=== PATIENT | female | born 1965 | race Caucasian/White ===

== ENCOUNTER 2019-03-31 17:39 | Observation (INO) | payer BC ==
--- NOTE | 2019-03-31 18:06 | ED ---
Neurological HPI - HPI Summary HPI Summary: This pt is a 53 y/o female presenting to [facility] c/o numbness in bilateral legs, bilateral face numbness, right arm numnness, decreased rectal tone. Pt reports on Wednesday03/27/19 she noticed subtle symptoms of gas. The next day she started noticing her legs were aching and burning. She also experienced boring pain in her upper iliac crest and umbilicus. Additionally she noted her tongue felt weird numbness as well as her bilateral face. In the evening that day she had right hand numbness and a "weird" sensation. Denies any weakness. This morning she noticed she had decreased rectal tone and has urgency to defecate with a lot of gas. Patient has been on PO steroids since Wednesday (03/27/19) prescribed by Dr. Bragg. She notes she has probably had 60 mg of steroids every day since 03/27/19. Pt notes she has had these spinal cord symptoms in the past after a cold or viral syndrome where it has resolved after PO steroids. This time pt denies any associated cold or viral illness symptoms. Pt reports in 2013 she had a viral syndrome with a fever and then had spinal cord symptoms with a fever. She was given PO steroids and Acyclovir and her symptoms resolved. In 2014 pt notes she was sick again with a cough and cold and had spinal cord symptoms 2 days later. She was also placed on PO steroids and Acyclovir and her symptoms resolved. In 2014 pt had a viral illness and also spinal cord symptoms. In the last year patient states she kept getting sick, in February 2018 and July 2018 she had spinal cord symptoms. Today pt notes this is the first time she has been getting spinal cord symptoms without getting sick with a viral syndrome and it has been more intense and scary. Pt saw Dr. Bragg in his office and reviewed previous scans and were debating a spinal tap. Pt emailed with Harjit, who does peripheral neuro, and was told pt should see someone who is objective to treat her and advised her she needed an LP sooner than later. PMHx: breast CA on remission s/p bilateral mastectomy, hemangioblastoma posterior fossa s/p resection, reconstruction of breasts with implants. Pt reports occasional alcohol use. Medications reviewed. Allergies noted. - History of Current Complaint Stated Complaint: NEUROLOGY PROBLEM PER PT Time Seen by Provider: 03/31/19 17:41 Hx Obtained From: Patient Onset/Duration: Started days ago, Still Present Timing: Constant Current Severity: Moderate Neurological Deficit Location: Facial, RUE, RLE, LLE Pain Intensity: 0 Pain Scale Used: 0-10 Numeric Character: Numbness/Tingling - numbness Aggravating: Nothing Alleviating: Nothing Associated Signs and Symptoms: Positive: Numbness, Incontinent Bladder/Bowel - urgency to defecate, decreased rectal tone. Negative: Visual Changes, Weakness , Impaired Speech, Fever - Allergy/Home Medications Allergies/Adverse Reactions: Allergies Allergy/AdvReac Type Severity Reaction Status Date / Time ceftriaxone Allergy Rash Verified 03/31/19 17:49 doxycycline Allergy Rash Verified 03/31/19 17:49 hydromorphone [From Dilaudid] Allergy Rash Verified 03/31/19 17:49 iodine Allergy Rash Verified 03/31/19 17:49 oxycodone Allergy Rash Verified 03/31/19 17:49 Home Medications: Home Medications predniSONE TAB* [Deltasone 20 MG TAB*] 40 mg PO DAILY 03/31/19 [History Confirmed 03/31/19] PMH/Surg Hx/FS Hx/Imm Hx Endocrine/Hematology History: Denies: Hx Diabetes Cardiovascular History: Denies: Hx Hypertension, Hx Pacemaker/ICD History: Denies: Hx Renal Disease Musculoskeletal History: Denies: Hx Rheumatoid Arthritis, Hx Osteoporosis Sensory History: Reports: Hx Hearing Aid Neurological History: Denies: Other Neuro Impairments/Disorders Psychiatric History: Denies: Hx Panic Disorder - Cancer History Cancer Type, Location and Year: HEMANGIOMA-BLASTOMA AND BREAST CANCER - Surgical History Surgical History: Yes Surgery Procedure, Year, and Place: 1984-RESECTION OF HEMANGIO-BLASTOMA POSTERIOR FOSSA,. BILATERAL MASTECTOMY, 04/27/16 BREAST IMPLANTS Infectious Disease History: No Infectious Disease History: Denies: Hx Clostridium Difficile, Hx Hepatitis, Hx Human Immunodeficiency Virus (HIV), Hx of Known/Suspected MRSA, Hx Shingles, Hx Tuberculosis, Hx Known/ Suspected VRE, Hx Known/Suspected VRSA, History Other Infectious Disease, Traveled Outside the [place] in Last 30 Days - Family History Known Family History: Positive: Non-Contributory - Social History Alcohol Use: Occasionally Substance Use Type: Reports: None Smoking Status (MU): Never Smoked Tobacco Have You Smoked in the Last Year: No Review of Systems Negative: Fever Gastrointestinal: Other - POSITIVE: urgency to defecate Neurological: Other - POSITIVE: decreased rectal tone Positive: Numbness. Negative: Weakness All Other Systems Reviewed And Are Negative: Yes Physical Exam - Summary Physical Exam Summary: Constitutional: Well-developed, Well-nourished, Alert. (-) Distressed Skin: Warm, Dry HENT: Normocephalic; Atraumatic Eyes: Conjunctiva normal Neck: Musculoskeletal ROM normal neck. (-) JVD, (-) Stridor, (-) Tracheal deviation Cardio: Rhythm regular, rate normal, Heart sounds normal; Intact distal pulses; The pedal pulses are 2+ and symmetric. Radial pulses are 2+ and symmetric. (-) Murmur Pulmonary/Chest wall: Effort normal. (-) Respiratory distress, (-) Wheezes, (-) Rales Abd: Soft, (-) tenderness, (-) Distension, (-) Guarding, (-) Rebound Musculoskeletal: (-) Edema Lymph: (-) Cervical adenopathy Neuro: Alert, Oriented x3 Psych: Mood and affect Normal Triage Information Reviewed: Yes Vital Signs On Initial Exam: Initial Vitals Temp Pulse Resp BP Pulse Ox 97.3 F 78 19 146/86 98 03/31/19 17:43 03/31/19 17:43 03/31/19 17:43 03/31/19 17:43 03/31/19 17:43 Vital Signs Reviewed: Yes Procedures - Sedation Patient Received Moderate/Deep Sedation with Procedure: No Diagnostics - Vital Signs Vital Signs Temp Pulse Resp BP Pulse Ox 03/31/19 17:43 97.3 F 78 19 146/86 98 - Laboratory Result Diagrams: 03/31/19 18:13 03/31/19 18:13 Lab Statement: Any lab studies that have been ordered have been reviewed, and results considered in the medical decision making process. Course/Dx - Course Course Of Treatment: Patient is here with multiple neurologic symptoms including a sensation of tight belt around her waist, burning sensation in bilateral lower extremities, numbness in her right upper extremity and bilateral face area patient's had similar symptoms in the past following viruses but has never had symptoms like this without a viral prodrome. Patient' s also never had bowel dysfunction. Patient will receive an MRI with and without contrast of her brain, cervical spine, thoracic spine, lumbar spine today as an inpatient. Dr. Bragg wants to give 1 g of Solu-Medrol after the MRI. An LP will be arranged following MRI likely in the morning. Patient is admitted to the hospital. - Diagnoses Provider Diagnoses: Bilateral leg numbness, Right arm numbness, Bowel dysfunction - Physician Notifications Discussed Care Of Patient With: Ezio Cochran - hospitalist Time Discussed With Above Provider: 18:12 Instructed by Provider To: Admit As Inpatient Discharge ED - Sign-Out/Discharge Documenting (check all that apply): Patient Departure - Admit to [facility] [place] - Discharge Plan Condition: Stable Disposition: ADMITTED TO [facility] - Billing Disposition and Condition Condition: STABLE Disposition: Admitted to [facility] - Attestation Statements Document Initiated by Erwin: Yes Documenting Scribe: Eileen Acosta Provider For Whom Erwin is Documenting (Include Credential): Jacob Rust MD Scribe Attestation: Eileen Egan, scribed for Jacob Rust MD on 04/01/19 at 0855. Scribe Documentation Reviewed: Yes Provider Attestation: The documentation as recorded by the Eileen gutiérrez accurately reflects the service I personally performed and the decisions made by , Jacob Rust MD Status of Scribe Document: Viewed
[2019-03-31 18:19] LABS: ABS Lymphocytes 0.7 10^3/ul (1.0-4.8); ABS Monocytes 0.3 10^3/ul (0-0.8); ABS Neutrophils 6.5 10^3/ul (1.5-7.7); Hematocrit 41 % (35-47); Hemoglobin 14.1 g/dL (12.0-16.0); Lymphocyte % 8.9 %; Mean Corpuscular HGB Conc 34 g/dL (31-36); Mean Corpuscular Hemoglobin 31 pg (27-31); Mean Corpuscular Volume 91 fL (80-97); Platelet Count 195 10^3/uL (150-450); Red Blood Count 4.53 10^6 /uL (3.70-4.87); Red Cell Distribution Width 13 % (10-15); White Blood Count 7.5 10^3/uL (3.5-10.8)
[2019-03-31 18:36] LABS: Albumin 4.4 g/dL (3.2-5.2); Albumin/Globulin Ratio 1.4 (1-3); Calcium 9.5 mg/dL (8.6-10.3); EGFR African American 66.1 (>60); EGFR Non-African American 54.6 (>60); Globulin 3.2 g/dL (2-4); Potassium 4.3 mmol/L (3.5-5.0); Total Bilirubin 0.4 mg/dL (0.2-1.0); Total Protein 7.6 g/dL (6.4-8.9)
[2019-03-31] MEDS ORDERED: Acetaminophen TAB* 325 MG PO PRN (19:10)
[2019-03-31] MEDS ORDERED: Gadoteridol* (CONTRAST) 279.3 MG/ML 10 ML IV ONE (19:35)
[2019-03-31] MEDS ORDERED: methylPREDNISolone SOD SUCC* 1,000 MG in NS 0.9% 250 ML* 250 ML IVPB ONE (22:00)
--- NOTE | 2019-03-31 22:21 | HP ---
CC: Dr. Gertrude Ward; Dr. Marc Bragg, Dr. Lopez, [place]; Dr. Dunia Braun* HISTORY AND PHYSICAL: DATE OF ADMISSION: 03/31/19 PRIMARY CARE PROVIDER: Dr. Gertrude Ward. NEUROLOGIST: Dr. Marc Bragg, Dr. Lopez, [place]. ATTENDING PHYSICIAN: Dunia Braun MD* (dictated by DAISHA Lizarraga). CHIEF COMPLAINT: Paresthesias. HISTORY OF PRESENT ILLNESS: Ms. Johns is a 53-year-old female with a past medical history of 5 episodes of viral prodrome followed by myelopathy and paresthesias that resolved with oral steroid, history of bilateral breast cancer , status post bilateral mastectomy, hemangioblastoma, resected in 1984, who presented to the ER today with complaints of paresthesias from the iliac crest distally. She notes that this likely began on Wednesday and became worse Wednesday. She noted by the end of the day, Wednesday she was in excruciating pain. She describes the pain as an "aching boring pain" that is constant. It does not appear to be positional. She notes that it is like wearing a "tight belt." She describes associated tingling in the extremities right greater than left. She notes right hand and face tingling with a sensation that the tongue is thickened and heavy, but notes that this has improved. She denies weakness. She notes that she has had increased flatus and bowel urgency since this all began and believed her rectal tone has decreased after having a sepsis. She also describes a burning sensation in the perineal and buttock area. She has no visual deficits. She denies dysphagia, dysarthria. She denies weakness. She started prednisone 20 mg Wednesday and took 60 mg on Wednesday, and Wednesday and has experienced no relief. She does have a history of viral prodrome , followed by this belt like pain and paresthesias that typically resolves after 2 days of steroids, her typical regimen is 60 x2 days, 40 x2 days, 20 x2 days and then discontinue. She notes that steroids have not decreased any of her symptoms at this time leading to her seeking medical attention in the ER. PAST MEDICAL HISTORY: 1. Breast cancer, status post bilateral mastectomy, previously was on tamoxifen which was discontinued in January 2019 due to adverse effects. 2. History of hemangioblastoma, resected in 1984. 3. History of adhesive capsulitis, right shoulder status post reconstruction surgery. PAST SURGICAL HISTORY: Bilateral mastectomy with negative lymph nodes December 2015, reconstructive surgery x2, January 2016, April 2016. HOME MEDICATIONS: Ibuprofen 200 mg p.o. q. 6 hours p.r.n. pain. DRUG ALLERGIES: CEFTRIAXONE, DOXYCYCLINE, HYDROMORPHONE, MORPHINE, OXYCODONE, IODINE. FAMILY HISTORY: Mother from cardiomyopathy. Father is 92, has a history of atrial fibrillation and skin cancer. She has a sister with ITP and congenital hearing loss. She has 2 siblings with hypothyroidism. Paternal grandmother had a fatal NH. Maternal grandmother with metastatic cancer. Maternal grandfather melena. Positive family history of breast cancer. No family history of CVA, diabetes mellitus, neurological disorder, autoimmune disorder. SOCIAL HISTORY: The patient does not use tobacco and never has. She drinks 1 to 3 drinks of wine per week. She does not use ay illicit drugs. 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 She is single. She has no children but notes she has had miscarriages. In the event that she is unable to make her own medical decision, she has appointed Arely Wayne, or her brother, Bravo Johns, to be her surrogate decision makers. REVIEW OF SYSTEMS: A 14-point review of systems has been performed and all the pertinent positives and negatives are in the HPI. All other systems are negative. PHYSICAL EXAMINATION GENERAL: Ms. Johns is a well-developed, well-nourished, average weight middle - aged white female, who is sitting up in bed. She appears to be in no acute distress. She is pleasant and cooperative. She speaks eloquently without dysarthria or ataxia. HEENT: Pupils equally round and reactive to light. Extraocular movements are intact. Visual spicer are grossly intact. Sclerae nonicteric. Hearing is grossly intact, although it is noted that the patient wears hearing aids. Oral mucous membranes are moist and there are no lesions. The pharynx is clear. The tongue is at midline. The palate elevates symmetrically. PULMONARY: Symmetrical chest expansion without use of accessory muscles, clear to auscultation bilaterally without rhonchi, wheezes or rales. CARDIOVASCULAR: Regular rate and rhythm with S1, S2 present no murmurs, rubs, clicks, or gallops. There is no JVD or peripheral edema. Radial and pedal pulses are palpable. ABDOMEN: Bowel sounds in all quadrants. Soft, nontender to palpation. MUSCULOSKELETAL: Strength is 5/5 bilaterally in upper and lower extremities with equal stove fitter strength. The patient has no increased pain with palpation or hip and knee flexion or extension. NEURO: The patient is awake. She is alert and oriented x3. Cranial nerves II through XII are grossly intact. Submarine Element Coordinator strength is equal bilaterally. Muscle strength 5/5 bilaterally in upper and lower extremities. Muscle strength is equal. Sensation is intact throughout bilateral distal lower extremities. DIAGNOSTIC STUDIES/LAB DATA: In the ER, the patient received a full workup. A CBC and BMP were relatively unremarkable with a mild increase in creatinine. MRI of the brain, cervical, thoracic and lumbar spine with and without contrast are pending at this time. ASSESSMENT AND PLAN: Ms. Johns is a 53-year-old female with a past medical history of viral prodrome followed by myelopathy and paresthesias, bilateral breast cancer, status post bilateral mastectomy, hemangioblastoma resected in 1984, who presented to the ER today with complaints of paresthesias that have not improved with oral steroids as they have in the past. The patient will be admitted to observation for: 1. Paresthesias. The patient presents with band like tightness around the lower abdomen with associated paresthesias from the iliac crest distally, right greater than left. She notes she has had a history of this approximately 5 times in the past, each time she had a viral prodrome prior and her symptoms were resolved within days of starting steroids. This time she has not had a viral prodrome and her symptoms persist despite steroids. Neurology has been consulted and has made recommendations. MRI of the brain, CT and L spine with and without contrast are pending at this time. After her imaging, she will receive 1 g of Solu-Medrol, second dose will be scheduled for tomorrow. She will have a lumbar puncture in the morning with anesthesia. LP test include flow cytometry, HSV 1 and 2, VZV, oligoclonal bands, paraneoplastic panel on CSF and serum, Lyme titers on CSF and serum. Her current MRIs and her MRIs from 2013 will be forwarded to [place] to her neurologist, Dr. Lopez. Neurology will continue to follow. 2. History of breast cancer. The patient has a history of bilateral breast cancer, status post bilateral mastectomy, with reconstruction who was recently on tamoxifen. She has discontinued this medication due to adverse effects. 3. DVT prophylaxis. According to DVT Risk Assessment, the patient scores 1 placing her at low risk. Chemo prophylaxis will be avoided at this time as the patient is preparing for lumbar puncture in the morning. Encourage ambulation. 4. Code status. Full code. TIME SPENT: Approximately 60 minutes was spent on this admission, greater than half of that time was spent [id number] with the patient obtaining history, performing physical, and reviewing the plan of care. The case has been reviewed with my attending, Dr. Braun, who is in agreement with the plan of care. DAISHA POON [id number]/[facility]PS #: [id number] MTDD
[2019-04-01] MEDS ORDERED: NS 0.9% 500 ML* 500 ML IV ONE (08:00)
[2019-04-01] MEDS ORDERED: Midazolam* 1 MG/ML 2 ML VIAL (2 MG) ONE (09:08)
[2019-04-01] MEDS ORDERED: fentaNYL* 50 MCG/ML 2 ML VIAL (100 MCG VIAL) ONE (09:08)
[2019-04-01 11:02] LABS: Body Fluid Source Cerebral Spinal
[2019-04-01 11:17] VITALS: BP 111/63
[2019-04-01 11:17] LABS: CSF Glucose 99 mg/dL (40-70)
--- NOTE | 2019-04-01 11:34 | CONS ---
CONSULTATION REPORT: ADDENDUM: In addition, the plan is for her to have an EMG/nerve conduction study and she is going to have that up at [place]. [id number]/[facility] #: [id number]
--- NOTE | 2019-04-01 12:13 | PN ---
Subjective - Subjective Reason for Note: Discharge Note History: DISCHARGE SUMMARY Rosaura Crocker provided me with a detailed history and I also reviewed her presentation in [facility] Rider's admitting history and physicals. I reviewed the electronic medical records. She presented with a 6th episode of acute neurological symptoms. The first 5 followed acute viral syndromes. On this case it started in the absence of viral infection or prodrome. She had some initial bowel symptoms - gas. She also noted reduced rectal tone. She has developed dysesthetic pain in her legs and also extending in her iliac region to her umbilicus - the right side slightly higher then her left side. At first her tongue was heavy and she had some abnormal sensation develop in her right face and hand. The pain in her legs became unbearable and so she was admitted for IV steroids as oral steroids had not significantly helped. She has had a positive response to her first steroid infusion. She no longer has sensations in her face, tongue hands, abdomen, buttocks or iliac regions. Her legs have improved further markedly since this morning. She feels well enough to go home after another infusion. She tolerated a lumbar puncture well and now has no headache or neck stiffness Active Problems: Active Problems Decreased rectal sphincter tone (Acute) K62.89 Status post bilateral mastectomy (Acute) Z90.13 Dysesthesia of multiple sites (Chronic) R20.8 History of breast cancer (Chronic) Z85.3 Current Medications: Current Medications Acetaminophen (Tylenol Tab*) 650 mg PO Q4H PRN PRN Reason: mild to moderate pain Sodium Chloride (Ns 0.9% 500 Ml*) 500 mls @ 100 mls/hr IV ONCE ONE Stop: 04/01/19 12:59 Last Admin: 04/01/19 08:04 Dose: 100 mls/hr - Review of Systems Constitutional Symptoms: Yes: Night Sweats - has hot flashes, No: Fever Dermatology: Rash: No Eyes: Negative: Change in Vision, Double Vision Pulmonary: Negative: Cough, Sputum, Respiratory Distress, Shortness of Breath Cardiology: Negative: Chest Pain, Palpitations Gastroenterology: Positive: Change in Bowel Habits - She continues to pass gas and not have her usual am bowel movement Negative: Abdominal Pain, Nausea, Vomiting, Anorexia Genital - Urinary: Positive: Other - Her urinary volume less than usual - Dr. Puente suggested a post-void scan Neurology: Negative: Headache, Change in Vision, Diplopia, Dizziness, Change in Speech, Change in Walking Psychiatry: Positive: Anxiety Home Medications: Home Medications Medication Instructions Recorded Confirmed Type Ibuprofen TAB* [Advil TAB*] 200 mg PO Q6H PRN 05/01/15 03/31/19 History predniSONE TAB* [Deltasone 20 MG 40 mg PO DAILY 03/31/19 03/31/19 History TAB*] Allergies: Allergies Allergy/AdvReac Type Severity Reaction Status Date / Time ceftriaxone Allergy Rash Verified 03/31/19 17:49 doxycycline Allergy Rash Verified 03/31/19 17:49 hydromorphone [From Dilaudid] Allergy Rash Verified 03/31/19 17:49 iodine Allergy Rash Verified 03/31/19 17:49 oxycodone Allergy Rash Verified 03/31/19 17:49 Objective - Vital Signs Vital Signs: Vital Signs 03/31/19 03/31/19 03/31/19 17:43 18:30 18:31 Temperature 97.3 F Pulse Rate 78 64 64 Respiratory 19 7 Rate Blood Pressure 146/86 127/77 (mmHg) O2 Sat by Pulse 98 95 95 Oximetry 03/31/19 03/31/19 03/31/19 19:00 19:45 22:00 Temperature 0 F 98.0 F Pulse Rate 67 0 62 Respiratory 25 0 18 Rate Blood Pressure 140/69 0/0 131/73 (mmHg) O2 Sat by Pulse 96 0 100 Oximetry 04/01/19 04/01/19 04/01/19 00:10 03:30 07:15 Temperature 97.3 F 97.4 F 98.2 F Pulse Rate 76 52 66 Respiratory 17 17 13 Rate Blood Pressure 116/63 100/55 115/66 (mmHg) O2 Sat by Pulse 98 97 95 Oximetry 04/01/19 04/01/19 04/01/19 08:00 09:55 10:10 Temperature 97.4 F 97.8 F Pulse Rate 71 77 Respiratory 13 16 16 Rate Blood Pressure 133/73 116/69 (mmHg) O2 Sat by Pulse 98 99 Oximetry 04/01/19 11:15 Temperature 97.9 F Pulse Rate 63 Respiratory 17 Rate Blood Pressure 111/63 (mmHg) O2 Sat by Pulse 97 Oximetry - Intake and Output Intake and Output: Intake & Output 03/29/19 03/30/19 03/31/19 04/01/19 11:59 11:59 11:59 11:59 Intake Total 250 Balance 250 Weight 188 lb Intake: IV Fluids 250 PB - METHYLPREDNISOLONE 250 Oral 0 Other: # Bowel Movements 0 ADLs: Meal Record Start: 03/31/19 20: 12 Freq: DAILY@0900,1400,1800 Status: Active Protocol: Created 03/31/19 20:12 System (Rec: 03/31/19 20:12 System [email or web address]) Document 04/01/19 09:00 [id number] (Rec: 04/01/19 09:09 [id number]) Intake and Output Start: 03/31/19 20: 12 Freq: DAILY@0600,1400,2200 Status: Active Protocol: Created 03/31/19 20:12 System (Rec: 03/31/19 20:12 System [email or web address]) Document 04/01/19 05:59 [id number] (Rec: 04/01/19 06:00 [id number]) - Physical Exam General Physical Exam Comment: She is warm, well perfused and conversational. She is her usual highly intelligent, insightful self. Eye Exam: bilateral: EOMI - normal - no internuclear ophthalmoplegia, Vision Field - Intact Skin: Normal: Rash -: No Tremor, No Goiter, No Thyroid Nodule Endocrine: No Central Obesity, No Hirsuitism, No Virilism, No Acromegaly, No Vitiligo, No Flushing, No Acanthosis nigricans, No Violaceious striae, No Houston Syndrome, No Buccal pigmenatation, No Way Crease Pigmentation Lungs and Chest: Yes: Chest Expansion Full, Percussion Note Resonant, Vessicular Breath Sounds. No: Crackles, Wheezes Heart Rate and Rhythm: Regular JVP: Not Elevated Additional Cardiovascular: Yes: Normal Heart Sounds. No: Heart Murmur, Carotid Bruits, Pedal Edema Abdominal Exam: Yes: Bowel Sounds Present. No: Distention, Abdominal Mass, Hepatomegaly, Splenomegaly, Abdominal Tenderness - Extremities Cranial Nerves II-XII Intact: Yes Limbs: Normal Power, Normal Tone, Normal Coordination Reflexes: Bilateral: Plantar - downgoing bilaterally - Neuro Orientation: A/O x3 Psychiatric: Normal, Anxious Speech: Normal Results - Results Lab Results: Laboratory Results - last 24 hr 03/31/19 03/31/19 04/01/19 18:13 18:13 10:03 WBC 7.5 RBC 4.53 Hgb 14.1 Hct 41 MCV 91 MCH 31 MCHC 34 RDW 13 Plt Count 195 MPV 10.0 Neut % (Auto) 87.1 Lymph % (Auto) 8.9 Kittson % (Auto) 3.7 Eos % (Auto) 0.0 Baso % (Auto) 0.3 Absolute Neuts (auto) 6.5 Absolute Lymphs (auto) 0.7 L Absolute Monos (auto) 0.3 Absolute Eos (auto) 0.0 Absolute Basos (auto) 0.0 Absolute Nucleated RBC 0.0 Nucleated RBC % 0.0 Sodium 140 Potassium 4.3 Chloride 108 Carbon Dioxide 28 Anion Gap 4 BUN 22 Creatinine 1.05 H Est GFR ( Amer) 66.1 Est GFR (Non-Af Amer) 54.6 BUN/Creatinine Ratio 21.0 H Glucose 125 H Calcium 9.5 Total Bilirubin 0.40 AST 25 ALT 31 Alkaline Phosphatase 58 Total Protein 7.6 Albumin 4.4 Globulin 3.2 Albumin/Globulin Ratio 1.4 Fluid Source Fluid Volume Fluid Color Fluid Appearance Fluid WBC Fluid RBC CSF Cell Count Tube # CSF Glucose 99 H 04/01/19 10:03 WBC RBC Hgb Hct MCV MCH MCHC RDW Plt Count MPV Neut % (Auto) Lymph % (Auto) Kittson % (Auto) Eos % (Auto) Baso % (Auto) Absolute Neuts (auto) Absolute Lymphs (auto) Absolute Monos (auto) Absolute Eos (auto) Absolute Basos (auto) Absolute Nucleated RBC Nucleated RBC % Sodium Potassium Chloride Carbon Dioxide Anion Gap BUN Creatinine Est GFR ( Amer) Est GFR (Non-Af Amer) BUN/Creatinine Ratio Glucose Calcium Total Bilirubin AST ALT Alkaline Phosphatase Total Protein Albumin Globulin Albumin/Globulin Ratio Fluid Source Cerebral spinal Fluid Volume 8 Fluid Color Colorless Fluid Appearance Clear Fluid WBC 0 Fluid RBC 0 CSF Cell Count Tube # 4 CSF Glucose Radiology Results: Patient Name: ROSAURA CROCKER Medical Record#: [id number] Ordering Physician: Jacob Rust MD Acct.#: [id number] : 1965 Age: 53 Sex: F Location: [address] [place] [address] Exam Date: 03/31/191741 ADM Status: ADM Panchito Order Information: MRI BRAIN W/WO Accession Number: [id number] CPT: 00455 PROCEDURE INFORMATION: Exam: MR Head Without and With Contrast Exam date and time: 03/31/2019 7:42 PM Age: 53 years old Clinical indication: Numbness / parasthesia; Prior surgery; Surgery date: 6+ months; Patient HX: C/O numbness from umbilicus down, decreased rectal tone, and sensory issues w/ right arm since . H/o breast CA; H/o resection of hemangioblastoma of posterior fossa in 1984; Additional info: Demylinating disease TECHNIQUE: Imaging protocol: MR of the head without and with intravenous contrast. Contrast material: PROHANCE; Contrast volume: 16 ml; Contrast route: IV; COMPARISON: BRAIN WWO MRI BRAIN W/WO 04/09/2014 10:21 AM FINDINGS: Ventricular and subarachnoid spaces are unremarkable. Major vascular flow voids at the skull base are preserved. No extra-axial fluid collection. Small left cerebellar resection cavity. No midline shift or intracranial mass effect. No cerebral edema. No diffusion restriction. No pathologic intracranial enhancement. Minimal nonspecific white matter gliosis, probable chronic microvascular ischemia. Visualized paranasal sinuses and mastoid air cells are clear. IMPRESSION: 1. No acute intracranial abnormality. 2. Left cerebellar resection cavity without pathologic enhancement. Dictated and Authenticated by: Dmitriy Juarez MD 03/31/2019 9:58 PM Eastern Time ([place] and [place]) To contact [facility] with a general question: Operations Center - [phone] For direct physician to physician contact: Physician Hotline - [phone] [facility] ([facility] Facility ID #[id number]) <Electronically signed by Dmitriy Juarez MD in OV> 03/31/192157 Dictated By: Dmitriy Juarez MD Dictated Date/Time: 03/31/191941 Transcribed Date/Time: 03/31/191941 Copy to: Patient Name: ROSAURA CROCKER Medical Record#: [id number] Ordering Physician: Jacob Rust MD Acct.#: [id number] : 1965 Age: 53 Sex: F Location: [address] [place] [address] Exam Date: 03/31/191741 ADM Status: ADM Panchito Order Information: MRI CERVICAL SPINE W/WO Accession Number: [id number] CPT: 20622 PROCEDURE INFORMATION: Exam: MR Cervical Spine Without and With Contrast Exam date and time: 03/31/2019 7:59 PM Age: 53 years old Clinical indication: Patient HX: C/O numbness from umbilicus down, decreased rectal tone, and sensory issues w/ right arm since tues. H/o breast CA; H/o resection of hemangioblastoma of posterior fossa in 1984; Additional info: Demylinating disease TECHNIQUE: Imaging protocol: Multiplanar magnetic resonance images of the cervical spine without and with intravenous contrast. Contrast material: PROHANCE; Contrast volume: 16 ml; Contrast route: IV; COMPARISON: [facility] MRI CERVICAL SPINE W/WO 04/09/2014 10:39 AM FINDINGS: Nonspecific straightening of the cervical lordosis. Vertebral body height and AP alignment is preserved. No evidence of discitis/osteomyelitis. No abnormal cord signal or expansion. No epidural fluid collection. No pathologic intrathecal enhancement. Stable small focus of susceptibility centered at the posterior intradural extramedullary space of the superior cervical spine. C2-C3: No central or foraminal stenosis. C3-C4: No central or foraminal stenosis. C4-C5: No central or foraminal stenosis. C5-C6: Minimal disc osteophyte complex without central or foraminal stenosis. C6-C7: Mild disc osteophyte complex with minimal bilateral uncinate spurring. No significant central or foraminal stenosis. C7-T1: No central or foraminal stenosis. IMPRESSION: 1. No acute abnormality. 2. Central canal is widely patent throughout. Dictated and Authenticated by: Dmitriy Juarez MD 03/31/2019 10:03 PM Eastern Time ([place] and [place]) To contact [facility] with a general question: [facility] - [phone] For direct physician to physician contact: Physician Hotline - [phone] [facility] ([facility] Facility ID #[id number]) <Electronically signed by Dmitriy Juarez MD in OV> 03/31/192202 Dictated By: Dmitriy Juarez MD Patient Name: ROSAURA CROCKER Medical Record#: [id number] Ordering Physician: Jacob Rust MD Acct.#: [id number] : 1965 Age: 53 Sex: F Location: [address] [place] [address] Exam Date: 03/31/191741 ADM Status: ADM Panchito Order Information: MRI LUMBAR SPINE W/WO Accession Number: [id number] CPT: 18275 PROCEDURE INFORMATION: Exam: MR Lumbar Spine Without and With Contrast. Exam date and time: 03/31/2019 8:23 PM Age: 53 years old Clinical indication: Patient HX: C/O numbness from umbilicus down, decreased rectal tone, and sensory issues w/ right arm since tu. H/o breast CA; H/o resection of hemangioblastoma of posterior fossa in 1984; Additional info: Demylinating disease TECHNIQUE: Imaging protocol: Multiplanar magnetic resonance images of the lumbar spine without and with intravenous contrast. Contrast material: PROHANCE; Contrast volume: 16 ml; Contrast route: IV; COMPARISON: OT DLSP SP THORACOLUMBAR 2VWS 01/20/2014 5:23 PM FINDINGS: Vertebral body height and AP alignment is preserved. No evidence of discitis/osteomyelitis. Conus medullaris terminates at L1. No epidural fluid collection. No pathologic intrathecal enhancement. L1-L2: No central or foraminal stenosis. L2-L3: No central or foraminal stenosis. L3-L4: No central or foraminal stenosis. L4-L5: Minimal disc bulge with bilateral foraminal annular tears. No significant central or foraminal stenosis. L5-S1: No central or foraminal stenosis. IMPRESSION: 1. No acute abnormality. 2. Mild degenerative disc disease at L4-L5 without significant central canal compromise throughout. Dictated and Authenticated by: Dmitriy Juarez MD 03/31/2019 10:14 PM Eastern Time ([place] and [place]) To contact [facility] with a general question: Operations Center - [phone] For direct physician to physician contact: Physician Hotline - [phone] [facility] ([facility] Facility ID #[id number]) <Electronically signed by Dmitriy Juarez MD in OV> 03/31/192213 Dictated By: Dmitriy Juarez MD Dictated Date/Time: 03/31/192022 Transcribed Date/Time: 03/31/192022 Patient Name: ROSAURA CROCKER Medical Record#: [id number] Ordering Physician: Jacob Rust MD Acct.#: [id number] : 1965 Age: 53 Sex: F Location: [address] [place] [address] MEDICAL Exam Date: 03/31/191741 ADM Status: ADM Panchito Order Information: MRI THORACIC SPINE W/WO Accession Number: [id number] CPT: 73399 ADDENDUM Addendum created by Dmitriy Juarez MD on 03/31/2019 10:09:55 PM EST Comparison is made to prior MRI of the thoracic spine dated 04/09/2014. Signal abnormality and enhancement at T12 is new in the interval. In light of clinical history, consider metastatic deposit. Initial report created on 03/31/2019 10:08:04 PM EST PROCEDURE INFORMATION: Exam: MR Thoracic Spine Without and With Contrast Exam date and time: 03/31/2019 8:41 PM Age: 53 years old Clinical indication: Patient HX: C/O numbness from umbilicus down, decreased rectal tone, and sensory issues w/ right arm since . H/o breast CA; H/o resection of hemangioblastoma of posterior fossa in 1984; Additional info: Demylinating disease TECHNIQUE: Imaging protocol: Multiplanar magnetic resonance images of the thoracic spine without and with intravenous contrast. Contrast material: PROHANCE; Contrast volume: 16 ml; Contrast route: IV; COMPARISON: [facility] MRI THORACIC SPINE W/WO 04/09/2014 10:58 AM FINDINGS: Vertebral body height and AP alignment is preserved. No evidence of discitis/osteomyelitis. No abnormal cord signal or expansion. No epidural fluid collection. 2.3 cm focus of increased STIR signal and enhancement involving the T12 vertebral body. No central or foraminal stenosis throughout. IMPRESSION: 1. No abnormal cord signal. 2. No significant central or foraminal compromise. 3. 2.3 cm focus of increased STIR signal and enhancement involving the T12 vertebral body. Possible lipid poor hemangioma, followup is recommended to exclude more aggressive neoplastic process. Dictated and Authenticated by: Dmitriy Juarez MD 03/31/2019 10:09 Assessment - Problem List Assessment: Patient Problems Decreased rectal sphincter tone (Acute) Status post bilateral mastectomy (Acute) Dysesthesia of multiple sites (Chronic) History of breast cancer (Chronic) Plan: Dysesthesia of multiple sites (Chronic) The underlying etiology of this series of acute episodes of dysesthesia remains unknown. Her current investigations have not yet helped - imaging/labs. Her CSF investigations are pending. Her JEROD level and SPEP are negative. Since she is feeling improved, I think she can go home today after another steroid infusion. Decreased rectal sphincter tone (Acute) She also has reduced bladder sensation - I will check a post-void bladder scan Secondary diagnoses Status post bilateral mastectomy (Acute) History of breast cancer (Chronic) History of hemangioblastoma I discussed the above with Rosaura Crocker at length. She will follow up with outpatient infusions of steroid organized by Dr. Rishi Puente and will have neurological follow up at [facility] with Dr. Jonathan Lopez. Condition: Improved Disposition: Home
--- NOTE | 2019-04-01 12:57 | CONS ---
CC: Dr. Bragg; Dr. Lopez at [place] CONSULTATION REPORT: DATE OF CONSULT: PATIENT OF: Dr. Ward. HISTORY OF PRESENT ILLNESS: This is a 53-year-old right-handed woman who I am seeing for recurrent sensory symptoms primarily in her lower extremities. This began in March of 2014 following a flu-like illness with temperature to 103. She had a low abdominal sensory level without any weakness and had a feeling of numbness in V1 distribution in her face as well. She was evaluated with MRI scan of her neuraxis at that time, it showed some enhancement in her lower thoracic cord posteriorly and possibly in her trigeminal nerve on the right. Symptoms resolved with steroids, no LP was done at that point. Since then, she has had up until the present 4 episodes of similar symptoms often without facial numbness with all prior to most recent episode all following viral infections, all responding quickly to p.o. prednisone. Studies in the past included GREGORIO, Lyme titers, B12, and sed rate with negative findings. 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 She was on tamoxifen following that but has come off within the past several months due to side effects and she feels back to her baseline. She since Wednesday has had return of symptoms similar to the prior episodes without any preceding viral symptoms or fever. She describes it as a tight band in her lower abdomen with a sensation of pain in her lower abdomen down to her legs, with a burning feeling as well in her abdomen and some burning in her perineal and buttocks area. She has had no weakness or balance problems or visual symptoms. She has had some right hand tingling which is so minimal that she is not sure whether it is truly there or not, and she has had some facial numbness, worse on the right than the left. There are no visual symptoms, no headache, no Lhermitte sign. She has had some increased flatus and she thinks her rectal tone may be decreased. There has been no change in bladder. She told me just 20 mg of prednisone on Wednesday and 40 on Wednesday and then 60 after that, this is different than what is in the chart. In any event, her symptoms got worse on Wednesday which is atypical for her prior courses and she contacted Dr. Willingham in [place], who had several recommendations which will be discussed below. Dr. Bragg had seen her briefly on Wednesday. Of note in addition to the breast cancer, she has had hemangioblastoma resected in 1984 and history of a frozen shoulder, status post reconstructive surgery. MEDICATIONS AT HOME: Include other than the steroids the ibuprofen p.r.n. ALLERGIES: She is allergic to CEFTRIAXONE, DOXYCYCLINE, HYDROMORPHONE, MORPHINE , OXYCODONE, and IODINE. FAMILY HISTORY: Her mother of cardiomyopathy. Father is 92 and has a history of atrial fibrillation and skin cancer. There is a sister with ITP. SOCIAL HISTORY: She does not smoke or drink significant wine. She does not use drugs. 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 REVIEW OF SYSTEMS: Negative in all 14 spheres other than HPI. PHYSICAL EXAM: On exam, she is alert and oriented with normal speech and comprehension. Cranial nerves II through XII were intact including there was no facial numbness. Fundi were benign. She had full extraocular movements. Face is symmetric. Motor exam revealed normal tone, strength, coordination, gait. Negative Romberg. Sensation intact to light touch. There is no vibratory sensory level. She had minimally decreased vibration in her feet compared to her knees; it was present, but it was within broad limits of normal. Reflexes were 2+ in the arm, 3 in the legs with ankle jerks of 2 on the right and 3 on the left. She had 3 reflexes in knees, but she did have crossed adductors bilaterally. Chest: Clear. Cardiovascular: Regular rate and rhythm. Abdomen: Soft. DIAGNOSTIC STUDIES/LAB DATA: Labs include normal CBC, normal chemistries. She had an MRI scan of her complete neuraxis, which showed no enhancement and no spinal cord disease. Her thoracic spine had a T12 possible hemangioma- malignancy was thought less likely per radiologist. Spinal tap has been ordered with routine studies, Lyme titers, oligoclonal bands, paraneoplastic antibodies, herpes simplex virus, flow cytometry, neoplastic panel, VZV. 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 There is history of sensory nerve findings in the trigeminal nerve in the face. It is unclear whether there is also some nerve root involvement such as in the right hand with this most recent episode and possibly in the feet. She has also had possibly decreased rectal tone. She should have a postvoid bladder ultrasound and now her spinal tap is being done, I am going to add a VDRL to that and we will add B12, folate, antibodies, and rheumatoid factor and paraneoplastic testing.. She has had an extensive rheumatological workup recently and I will check the results of that before proceeding. I have sent the MRI scan films up to [place] and either Dr. Bragg or myself will contact [place] this coming week. The plan is for her to complete a 3-day course of IV Solu-Medrol over the next few days time and I think that this is reasonable to get the second dose this afternoon. Thank you for sharing her case. [id number]/[facility] #: [id number] BRODERICK
[2019-04-01] MEDS ORDERED: methylPREDNISolone SOD SUCC* 1,000 MG in NS 0.9% 250 ML* 250 ML IVPB ONE (13:00)
--- NOTE | 2019-04-02 14:37 | CONS ---
CONSULTATION NOTE: DATE OF CONSULT: ADDENDUM: I reviewed Rosaura's symptoms of numbness just in her feet, at this point feels a lot better. Her spinal fluid had a white count of 0 with a total protein of 30, 100% lymphs. I spoke to Dr. Prado and reviewed the films with him in detail and then with Dr. Johns as well. The T12 lesion, Dr. Prado thinks the lesion is suspicious for metastatic disease especially given her history of breast cancer and also since it was not present on the MRI scan study from 2013. We will be sending a copy of this addendum to Dr. Wolff and Dr. Lopez as well as Dr. Ward and will be contacting Dr. Wolff as well. Dr. Prado discussed the possibility of doing either a bone scan or PET scan for further staging either before or after possible biopsy of the vertebral lesion. Dr. Johns is aware of all of this and spoke with me to Dr. Prado over the phone. [id number]/[facility] #: [id number] [facility]
[2019-04-03 15:25] LABS: HSV 1 PCR, CSF Negative (Negative); HSV 2 PCR, CSF Negative (Negative)
== END 2019-04-01 15:45 | disposition home or self-care (01) ==
LOC: ED 17:39 → MED 19:10
PROVIDERS: ADMIT Internal Medicine; ATTEND Internal Medicine
DX: R20.0 Anesthesia of skin (principal); K62.89 Other specified diseases of anus and rectum; R20.2 Paresthesia of skin; R20.8 Other disturbances of skin sensation; Z85.3 Personal history of malignant neoplasm of breast; Z90.13 Acquired absence of bilateral breasts and nipples
CPT/HCPCS: 36415; 70553; 72156; 72157; 72158; 80053; 82945; 83519; 83520; 83916; 84157; 85025; 86255; 86256; 86592; 86618; 86787; 87070; 87205; 87529; 88184; 88187; 88188; 88189; 89051; 96361; 96365; 96366; 99282; A9579; G0378; J2250; J2930; J3010

== ENCOUNTER 2019-04-28 10:27 | Day surgery (SDC) | payer BC ==
[~2019-04-28 10:27] MED LIST: Buffered Lidocaine 1% SYRIN* 1 ML/SYRINGE INTRADERM ONE; Lactated Ringers 1000 ML Bag* 1,000 ML IV SCH
[2019-04-28] MEDS ORDERED: Buffered Lidocaine 1% SYRIN* 1 ML/SYRINGE INTRADERM ONE (11:54)
[2019-04-28] MEDS ORDERED: Famotidine IV* 10 MG/ML 2 ML (20 mg) IV SLOW PU ONE (12:12)
[2019-04-28] MEDS ORDERED: Famotidine IV* 10 MG/ML 2 ML (20 mg) ONE (12:13)
[2019-04-28] MEDS ORDERED: Midazolam* 1 MG/ML 5 ML VIAL (5 MG) ONE (12:19)
[2019-04-28] MEDS ORDERED: Ondansetron INJ* 2 MG/ML VIAL ONE (12:19)
[2019-04-28] MEDS ORDERED: ceFOXitin 2 GM IVPREMIX* 2 GM/50 ML BAG ONE (12:35)
[2019-04-28] MEDS ORDERED: Lidocaine 1% INJ* 10 MG/ML 30 ML SDV ONE (13:13)
[2019-04-28] MEDS ORDERED: Acetaminophen IV 1GM/100ML * 100 ML ONE (13:34)
[2019-04-28] MEDS ORDERED: Ketorolac INJ* 30 MG/ML 1 ML VIAL ONE (13:34)
[2019-04-28] MEDS ORDERED: DiMENhydriNATE IV* 50 MG/ML VIAL ONE (13:34)
[2019-04-28] MEDS ORDERED: Dexamethasone IV* 4 MG/ML 1 ML (4 MG) ONE (13:34)
[2019-04-28] MEDS ORDERED: Propofol* 10 MG/ML 20 ML BTL ONE ×2 (13:34→13:37)
[2019-04-28] MEDS ORDERED: Ibuprofen TAB* 200 MG ONE (14:57)
[2019-04-28 15:02] VITALS: BP 124/77
--- NOTE | 2019-04-29 03:58 | OP ---
OPERATIVE REPORT: DATE OF OPERATION: 04/28/19 DATE OF : 63 SURGEON: Jennie Smith MD ANESTHESIOLOGIST: Dr. Olivarez. ANESTHESIA: General endotracheal with paracervical block. PRE-OP DIAGNOSIS: Endometrial polyp. POST-OP DIAGNOSIS: Endometrial polyp, endocervical polyp. OPERATIVE PROCEDURE: Dilation, curettage, and hysteroscopic resection of endometrial and endocervical polyp. ESTIMATED BLOOD LOSS: Minimal. URINE OUTPUT: 50 cc. DEFICIT: Less than 425 cc. FLUIDS: 900 cc of crystalloid. COMPLICATIONS: None apparent. DISPOSITION: Stable to recovery room. DESCRIPTION OF PROCEDURE: The patient was placed in dorsal lithotomy position. Perineum and vagina were prepped and draped in a sterile standard fashion. After identifying the patient with universal protocol for correct position, patient, and procedure, self-cath was inserted for drainage of clear yellow urine. Self-cath was then removed. Sterile speculum was then inserted. Cervix was grasped from the anterior lip after 5 cc of 1% lidocaine was placed in the anterior lip. Paracervical block was then carried out for a total of 10 cc of 1% lidocaine. Dilation was then carried out using Hegar dilators to #8. Hysteroscope was inserted. There was a large endocervical polyp, which was obliterating the endocervical canal. Repeat dilation was then carried out to size 10 and hysteroscope was then reinserted beyond and above the endocervical polyp. The endometrial cavity contained 2 endometrial polyps, one coming from the posterior wall left and one coming from the posterior wall right. At that point, XL MyoSure was placed for complete resection of the endometrial polyps, first the left and then to the right. The uterine cavity was then clearly visualized and tubal ostia bilaterally were seen. At that point, the MyoSure was retracted into the endocervical canal and the endocervical polyp was then resected in a similar fashion. The hysteroscope was then removed. A sharp curettage was then performed. The endometrial curettings as well as the resection of the endometrial and endocervical polyp specimens were sent together. After completion of the resection and curettage, single-tooth tenaculum was removed and sterile speculum was removed. The patient was returned to the dorsal lithotomy position and taken to recovery room in stable condition. All sponge, instrument, and blade counts were correct throughout the case. [id number]/[facility] #: [id number] MTDD
== END 2019-04-28 15:46 | disposition home or self-care (01) ==
LOC: OR 10:27
PROVIDERS: ATTEND Obstetrics & Gynecology
DX: N95.0 Postmenopausal bleeding (principal); N84.0 Polyp of corpus uteri; C50.912 Malignant neoplasm of unspecified site of left female breast; C79.51 Secondary malignant neoplasm of bone; Z17.1 Estrogen receptor negative status [ER-]; Z85.828 Personal history of other malignant neoplasm of skin
CPT/HCPCS: 88305; A9270-GY; J0694; J1100; J1240; J1885; J2250; J2405; J2704

== ENCOUNTER 2024-02-26 13:45 | Inpatient (IN) ==
[2024-02-26] MEDS ORDERED: Acetaminophen IV 1 GM/100ML 1,000 MG/100 ML BAG IV SCH ×2 (14:00→18:00)
[2024-02-26 14:28] LABS: Hematocrit 31.5 % (35-45); Hemoglobin 10.9 g/dL (11.5-14.3); Mean Corpuscular Hemoglobin 35.8 pg (27-33); Mean Corpuscular Hgb Conc 34.5 g/dL (31-36); Mean Corpuscular Volume 103.6 fL (80-97); Mean Platelet Volume 8.8 fL (7.5-11.2); Platelet Count 126 10^3/uL (150-450); Red Blood Count 3.05 10^6/uL (3.63-4.92); Red Cell Distribution Width 22.3 % (12-17)
[2024-02-26 14:44] LABS: Activated Partial Thrombo Time 25.5 seconds (26.0-38.0); INR 1.07 (0.85-1.14)
[2024-02-26 15:00] LABS: Albumin 3.2 g/dL (3.2-5.2); Albumin/Globulin Ratio 1.5 (1-3); C Reactive Protein 77.2 mg/L (<8.01); Calcium 8.2 mg/dL (8.6-10.3); Globulin 2.1 g/dL (2-4); Potassium 3.7 mmol/L (3.5-5.0); Total Bilirubin 1.9 mg/dL (0.2-1.0); Total Protein 5.3 g/dL (6.4-8.9); eGFR CKD-EPI 64.9 (>60)
[2024-02-26] MEDS: Piperacillin/Tazobac 3.375 BAG 3.375 GM/100 ML BAG IV ONE (15:16)
[2024-02-26] MEDS: Acetaminophen IV 1 GM/100ML 1,000 MG/100 ML BAG IV ONE (15:16)
[2024-02-26 15:19] LABS: ABS Lymphocytes 0.6 10^3/uL (1.0-4.8); ABS Monocytes 0.1 10^3/uL (0.0-0.9); ABS Neutrophils 2.3 10^3/uL (1.5-7.6); ABS Nucleated RBC 0.01 10^3/ul; Lymphocyte % 19.9 %; Nucleated Red Blood Cells % 0.3 %/100WBC (0.0-0.8)
[2024-02-26 15:20] LABS: Anisocytosis 2+; Macrocytosis 1+
[2024-02-26 16:02] LABS: High Sensitivity Troponin 1 Hr 20 pg/mL (<15)
[2024-02-26] MEDS: Lactated Ringers 1000 ml BAG IV.FLUID IV ONE (16:06)
[2024-02-26 17:41] LABS: Immature Retic Fraction 0.67
[2024-02-26 17:44] LABS: Corrected Retic Count 1.2 % (0.5-2.2); Hematocrit for Retic CNT 31.5 % (35-45); RBC Retic Count 3.05 10^6/ul (3.63-4.92)
[2024-02-26 17:49] LABS: Urine Appearance Clear; Urine Bilirubin Negative (Negative); Urine Blood Trace (Negative); Urine Color Yellow; Urine Glucose Negative (Negative); Urine Ketones Negative (Negative); Urine Nitrite Negative (Negative); Urine Protein Trace (Negative); Urine Specific Gravity 1.025 (1.002-1.030); Urine Urobilinogen Negative (Negative); Urine pH 6.5 (5.0-8.0)
[2024-02-26] MEDS ORDERED: Zosyn per Pharmacy NOTE FOLLOW UP SCH (18:00)
[2024-02-26] MEDS: Vancomycin 1,250 MG in NS 0.9% 250 ml 250 ML IVPB ONE (18:06)
[2024-02-26] MEDS: Azithromycin 500 mg/250 ml NS 500 MG/250 ML BAG IVPB SCH (19:20)
[2024-02-26] MEDS: ZOSYN 3.375 GM Q8H per EXTENDED INFUSION IV SCH (19:57)
[2024-02-26] MEDS: Enoxaparin 40 MG/0.4 ML SYR SUBCUT SCH (19:57)
[2024-02-26] MEDS: DULoxetine DR 60 mg CAP PO SCH (20:01)
[2024-02-26] MEDS: Acetaminophen IV 1 GM/100ML 1,000 MG/100 ML BAG IV PRN (23:19)
[2024-02-27] MEDS: ZOSYN 3.375 GM Q8H per EXTENDED INFUSION IV SCH (03:04)
[2024-02-27 04:49] LABS: Hematocrit 24.7 % (35-45); Hemoglobin 8.6 g/dL (11.5-14.3); Mean Corpuscular Hemoglobin 35.6 pg (27-33); Mean Corpuscular Hgb Conc 34.8 g/dL (31-36); Mean Corpuscular Volume 102.2 fL (80-97); Mean Platelet Volume 8.9 fL (7.5-11.2); Platelet Count 119 10^3/uL (150-450); Red Blood Count 2.41 10^6/uL (3.63-4.92); Red Cell Distribution Width 22.5 % (12-17); White Blood Count 2.2 10^3/uL (3.8-11.8)
[2024-02-27 05:09] LABS: Albumin 2.4 g/dL (3.2-5.2); Albumin/Globulin Ratio 1.6 (1-3); Calcium 7.3 mg/dL (8.6-10.3); Creatinine, Serum 0.77 mg/dL (0.51-0.95); Globulin 1.5 g/dL (2-4); Magnesium 1.6 mg/dL (1.9-2.7); Potassium 3.1 mmol/L (3.5-5.0); Total Bilirubin 1.4 mg/dL (0.2-1.0); Total Protein 3.9 g/dL (6.4-8.9); eGFR CKD-EPI 88.8 (>60)
[2024-02-27] MEDS: Potassium EFFERVES 25 meq TAB PO ONE (08:32)
[2024-02-27] MEDS: Cholecalciferol (VIT D3) 1,000 unit TAB PO SCH (08:33)
[2024-02-27] MEDS: Magnesium Sulfate 2 gm BAG 2 GM/50 ML BAG IVPB ONE (09:00)
[2024-02-27] MEDS: methylPREDNISolone SOD SUCC 40 mg/ml 1 ml VIAL IV SCH (11:32)
[2024-02-27 11:44] LABS: ABS Lymphocytes 0.2 10^3/uL (1.0-4.8); ABS Neutrophils 1.9 10^3/uL (1.5-7.6); ABS Nucleated RBC 0.01 10^3/ul; Eosinophil % 1.3 %; Lymphocyte % 7.8 %; Nucleated Red Blood Cells % 0.4 %/100WBC (0.0-0.8)
[2024-02-27] MEDS: Potassium Chlor 20 meq TAB.ER PO ONE (11:54)
[2024-02-28 04:55] LABS: ABS Lymphocytes 0.2 10^3/uL (1.0-4.8); ABS Neutrophils 1.7 10^3/uL (1.5-7.6); ABS Nucleated RBC 0.02 10^3/ul; Eosinophil % 0.1 %; Hematocrit 23.1 % (35-45); Lymphocyte % 9.3 %; Mean Corpuscular Hemoglobin 35.5 pg (27-33); Mean Corpuscular Hgb Conc 34.7 g/dL (31-36); Mean Corpuscular Volume 102.3 fL (80-97); Mean Platelet Volume 9.4 fL (7.5-11.2); Nucleated Red Blood Cells % 1.2 %/100WBC (0.0-0.8); Platelet Count 137 10^3/uL (150-450); Red Blood Count 2.25 10^6/uL (3.63-4.92); Red Cell Distribution Width 21.8 % (12-17)
[2024-02-28 05:26] LABS: Calcium 7.3 mg/dL (8.6-10.3); Creatinine, Serum 0.61 mg/dL (0.51-0.95); eGFR CKD-EPI 102.9 (>60)
[2024-02-28 08:16] LABS: Folate 11.86 ng/mL (5.90-24.80)
[2024-02-28 09:09] LABS: Ferritin 1345.2 ng/mL (11-307)
[2024-02-28] MEDS ORDERED: D5W IVPB SCH ×2 (15:00→15:30)
[2024-02-28] MEDS ORDERED: SULFAMETHOXAZOLE IVPB SCH ×2 (15:00→15:30)
[2024-02-28] MEDS ORDERED: TRIMETH IVPB SCH ×2 (15:00→15:30)
[2024-02-28] MEDS: SULFAMETHOXAZOLE IVPB SCH (15:22)
[2024-02-28] MEDS: TRIMETH IVPB SCH (15:22)
[2024-02-28] MEDS: D5W IVPB SCH (15:22)
[2024-02-29] MEDS: Furosemide 40 mg/4 ml IV VIAL IV SLOW PU ONE (02:05)
[2024-02-29] MEDS: Furosemide 40 mg/4 ml IV VIAL ONE (02:35)
[2024-02-29 05:11] LABS: ABS Lymphocytes 0.4 10^3/uL (1.0-4.8); ABS Monocytes 0.1 10^3/uL (0.0-0.9); ABS Neutrophils 2.4 10^3/uL (1.5-7.6); ABS Nucleated RBC 0.02 10^3/ul; Eosinophil % 0.8 %; Hematocrit 25.9 % (35-45); Lymphocyte % 12.3 %; Mean Corpuscular Hemoglobin 35.4 pg (27-33); Mean Corpuscular Hgb Conc 34.9 g/dL (31-36); Mean Corpuscular Volume 101.6 fL (80-97); Mean Platelet Volume 8.4 fL (7.5-11.2); Nucleated Red Blood Cells % 0.6 %/100WBC (0.0-0.8); Platelet Count 235 10^3/uL (150-450); Red Blood Count 2.55 10^6/uL (3.63-4.92); Red Cell Distribution Width 22.4 % (12-17); White Blood Count 2.9 10^3/uL (3.8-11.8)
[2024-02-29 05:32] LABS: Albumin 2.7 g/dL (3.2-5.2); Albumin/Globulin Ratio 1.5 (1-3); Calcium 7.5 mg/dL (8.6-10.3); Creatinine, Serum 0.73 mg/dL (0.51-0.95); Globulin 1.8 g/dL (2-4); Magnesium 1.8 mg/dL (1.9-2.7); Potassium 3.7 mmol/L (3.5-5.0); Total Bilirubin 0.7 mg/dL (0.2-1.0); Total Protein 4.5 g/dL (6.4-8.9); eGFR CKD-EPI 94.7 (>60)
[2024-02-29] MEDS: TRIMETH IVPB SCH (08:15)
[2024-02-29] MEDS: D5W IVPB SCH (08:15)
[2024-02-29] MEDS: SULFAMETHOXAZOLE IVPB SCH (08:15)
[2024-02-29] MEDS ORDERED: Sulfur Hexaflouride MICROSPHR 25 MG VIAL IV PRN (08:18)
[2024-02-29] MEDS: Magnesium Sulfate 2 gm BAG 2 GM/50 ML BAG IVPB ONE (08:39)
[2024-02-29] MEDS: Furosemide 20 mg/2 ml IV VIAL IV SLOW PU ONE (09:41)
[2024-02-29 10:43] LABS: Vitamin D Total 25(OH) 29.9 ng/mL (20-50)
[2024-02-29] MEDS: Potassium Chlor 20 meq TAB.ER PO ONE (11:21)
[2024-02-29] MEDS ORDERED: Etomidate 40 mg/20 ml (2 MG/ML) 20 ml VIAL (40 mg) ONE (11:53)
[2024-02-29] MEDS ORDERED: fentaNYL 250 mcg/5 ml 50 MCG/ML 5 ml VIAL (250 MCG) ONE (11:53)
[2024-02-29] MEDS ORDERED: Rocuronium 50 mg VIAL 10 mg/ml 5 ml VIAL (50 mg) ONE (11:53)
[2024-02-29] MEDS ORDERED: Midazolam 10 mg/10 ml VIAL 1 mg/ml 10 ml VIAL (10 mg) ONE (11:53)
[2024-02-29] MEDS: Propofol 10 mg/ml 100 ML BTL 1,000 MG/100 ML BTL IV SCH (12:02)
[2024-02-29] MEDS: Phenylephrine 40 mcg/mL 10mL (400mcg) SYRINGE ONE (12:48)
[2024-02-29] MEDS: Norepinephrine 4 MG/250mL D5W 4,000 MCG/250 ML BAG IV ONE (12:48)
[2024-02-29] MEDS: Propofol 10 mg/ml 100 ML BTL 1,000 MG/100 ML BTL ONE (12:49)
[2024-02-29] MEDS: Rocuronium 50 mg VIAL 10 mg/ml 5 ml VIAL (50 mg) ONE ×2 (12:49)
[2024-02-29] MEDS: fentaNYL INFUSION 50 mcg/mL VL 2,500 MCG/50 ML VIAL IV SCH (13:09)
[2024-02-29] MEDS: Potassium Chloride LIQUID 20 MEQ/15 ML LIQUID PO ONE (13:11)
[2024-02-29] MEDS: Chlorhexidine MOUTHWASH 0.12% 15 ML UDC TOPICAL SCH (13:11)
[2024-02-29] MEDS: Pantoprazole VIAL 40 MG VIAL IV SCH (13:11)
[2024-02-29] MEDS: methylPREDNISolone SOD SUCC 40 mg/ml 1 ml VIAL IV SCH (13:12)
[2024-02-29 13:49] LABS: Urine Appearance Clear; Urine Bilirubin Negative (Negative); Urine Blood Negative (Negative); Urine Color Light-Yellow; Urine Glucose Negative (Negative); Urine Ketones Negative (Negative); Urine Nitrite Negative (Negative); Urine Protein Negative (Negative); Urine Specific Gravity 1.009 (1.002-1.030); Urine Urobilinogen Negative (Negative); Urine pH 5.5 (5.0-8.0)
[2024-02-29 14:44] LABS: Adenovirus F40/41 Negative (Negative); Astrovirus Negative (Negative); Cryptosporidium species Negative (Negative); Cyclospora cayetanensis Negative (Negative); Entamoeba histolytica Negative (Negative); Enteroaggregative E.coli(EAEC) Negative (Negative); Enteropathogenic Ecoli(EPEC) Negative (Negative); Enterotoxigenic Ecoli(ETEC) Negative (Negative); Norovirus GI/GII Negative (Negative); Plesiomonas shigelloides Negative (Negative); Salmonella species Negative (Negative); Sapovirus Negative (Negative); Shiga toxin producing E. coli Negative (Negative); Shigella/Enteroinvasive E.coli Negative (Negative); Specimen Source STOOL; Vibrio cholerae Negative (Negative); Yersinia species Negative (Negative)
[2024-02-29 15:03] LABS: PCO2 Arterial 38 mmHg (35-45); PO2 Arterial 234 mmHg (80-100); Resp Rate 24
[2024-02-29] MEDS: Acetaminophen IV 1 GM/100ML 1,000 MG/100 ML BAG IV PRN (15:43)
[2024-02-29] MEDS: Norepinephrine 4 MG/250mL D5W 4,000 MCG/250 ML BAG IV SCH (16:06)
[2024-02-29] MEDS ORDERED: fentaNYL 100 mcg/2 ml 50 MCG/ML VIAL IV SLOW PU PRN (16:42)
[2024-02-29] MEDS: fentaNYL 100 mcg/2 ml 50 MCG/ML VIAL IV SLOW PU PRN (17:37)
[2024-02-29] MEDS: Midazolam 5 mg/5 ml VIAL 1 mg/ml 5 ml VIAL (5 mg) IV SLOW PU ONE (20:39)
[2024-02-29] MEDS: DULoxetine DR 60 mg CAP G TUBE SCH (20:39)
[2024-02-29 23:44] LABS: Calcium 6.9 mg/dL (8.6-10.3); Creatinine, Serum 0.71 mg/dL (0.51-0.95); Magnesium 2.3 mg/dL (1.9-2.7); Phosphorus 3.2 mg/dL (2.5-5.0); Potassium 4.2 mmol/L (3.5-5.0); eGFR CKD-EPI 97.9 (>60)
[2024-03-01 04:37] LABS: PCO2 Arterial 39 mmHg (35-45); PO2 Arterial 104 mmHg (80-100)
[2024-03-01 04:59] LABS: ABS Lymphocytes 0.3 10^3/uL (1.0-4.8); ABS Monocytes 0.1 10^3/uL (0.0-0.9); ABS Neutrophils 5.1 10^3/uL (1.5-7.6); ABS Nucleated RBC 0.01 10^3/ul; Eosinophil % 0.1 %; Hematocrit 24.8 % (35-45); Hemoglobin 8.8 g/dL (11.5-14.3); Lymphocyte % 4.9 %; Mean Corpuscular Hgb Conc 35.3 g/dL (31-36); Mean Corpuscular Volume 101.7 fL (80-97); Mean Platelet Volume 8.1 fL (7.5-11.2); Nucleated Red Blood Cells % 0.1 %/100WBC (0.0-0.8); Platelet Count 305 10^3/uL (150-450); Red Blood Count 2.43 10^6/uL (3.63-4.92); Red Cell Distribution Width 21.9 % (12-17); White Blood Count 5.5 10^3/uL (3.8-11.8)
[2024-03-01 05:40] LABS: Albumin 2.5 g/dL (3.2-5.2); Albumin/Globulin Ratio 1.3 (1-3); Calcium 6.9 mg/dL (8.6-10.3); Creatinine, Serum 0.71 mg/dL (0.51-0.95); Globulin 1.9 g/dL (2-4); Magnesium 2.4 mg/dL (1.9-2.7); Potassium 4.2 mmol/L (3.5-5.0); Total Bilirubin 0.6 mg/dL (0.2-1.0); Total Protein 4.4 g/dL (6.4-8.9); eGFR CKD-EPI 97.9 (>60)
[2024-03-01] MEDS: Cholecalciferol (VIT D3) 1,000 unit TAB G TUBE SCH (07:32)
[2024-03-01] MEDS ORDERED: methylPREDNISolone SOD SUCC 40 mg/ml 1 ml VIAL IV SCH (09:00)
[2024-03-01] MEDS ORDERED: Venlafaxine 25 mg TAB (NF) PO SCH (22:00)
[2024-03-01] MEDS: Venlafaxine 25 mg TAB (NF) G TUBE SCH (23:35)
[2024-03-02] MEDS: Propofol 10 mg/ml 100 ML BTL 1,000 MG/100 ML BTL ONE (02:02)
[2024-03-02] MEDS: Phenylephrine 40 mcg/mL 10mL (400mcg) SYRINGE ONE (02:02)
[2024-03-02] MEDS: Rocuronium 50 mg VIAL 10 mg/ml 5 ml VIAL (50 mg) ONE ×2 (02:02)
[2024-03-02] MEDS: Norepinephrine 4 MG/250mL D5W 4,000 MCG/250 ML BAG IV ONE (02:03)
[2024-03-02 05:00] LABS: PCO2 Arterial 42 mmHg (35-45); PO2 Arterial 126 mmHg (80-100)
[2024-03-02 05:10] LABS: Hematocrit 22.6 % (35-45); Hemoglobin 7.8 g/dL (11.5-14.3); Mean Corpuscular Hemoglobin 35.1 pg (27-33); Mean Corpuscular Hgb Conc 34.6 g/dL (31-36); Mean Corpuscular Volume 101.4 fL (80-97); Mean Platelet Volume 7.9 fL (7.5-11.2); Platelet Count 304 10^3/uL (150-450); Red Blood Count 2.23 10^6/uL (3.63-4.92); Red Cell Distribution Width 22.1 % (12-17); White Blood Count 3.8 10^3/uL (3.8-11.8)
[2024-03-02 05:48] LABS: Albumin 2.3 g/dL (3.2-5.2); Albumin/Globulin Ratio 1.4 (1-3); Calcium 6.6 mg/dL (8.6-10.3); Creatinine, Serum 0.69 mg/dL (0.51-0.95); Globulin 1.6 g/dL (2-4); Magnesium 2.7 mg/dL (1.9-2.7); Potassium 4.5 mmol/L (3.5-5.0); Total Bilirubin 0.4 mg/dL (0.2-1.0); Total Protein 3.9 g/dL (6.4-8.9); eGFR CKD-EPI 99.9 (>60)
[2024-03-02 06:04] LABS: ABS Lymphocytes 0.3 10^3/uL (1.0-4.8); ABS Monocytes 0.1 10^3/uL (0.0-0.9); ABS Neutrophils 3.4 10^3/uL (1.5-7.6); ABS Nucleated RBC 0.01 10^3/ul; Anisocytosis 2+; Eosinophil % 1.2 %; Large Platelets Present; Lymphocyte % 6.9 %; Macrocytosis 1+; Nucleated Red Blood Cells % 0.3 %/100WBC (0.0-0.8); Tear Drop Cells 1+
[2024-03-02] MEDS: Dextran 70/Hypromellose Tears Eye Drops 15 ml BTL (for Artificials Tears) BOTH EYES PRN (09:53)
[2024-03-03 06:03] LABS: PCO2 Arterial 41 mmHg (35-45); PO2 Arterial 101 mmHg (80-100); Resp Rate 18
[2024-03-03 06:09] LABS: Hematocrit 19.1 % (35-45); Hemoglobin 6.7 g/dL (11.5-14.3); Mean Corpuscular Hemoglobin 35.7 pg (27-33); Mean Corpuscular Hgb Conc 35.2 g/dL (31-36); Mean Corpuscular Volume 101.5 fL (80-97); Mean Platelet Volume 8.2 fL (7.5-11.2); Platelet Count 235 10^3/uL (150-450); Red Blood Count 1.88 10^6/uL (3.63-4.92); Red Cell Distribution Width 22.2 % (12-17); White Blood Count 2.6 10^3/uL (3.8-11.8)
[2024-03-03 06:42] LABS: Albumin 2.1 g/dL (3.2-5.2); Albumin/Globulin Ratio 1.3 (1-3); Calcium 6.8 mg/dL (8.6-10.3); Creatinine, Serum 0.68 mg/dL (0.51-0.95); Globulin 1.6 g/dL (2-4); Magnesium 2.6 mg/dL (1.9-2.7); Potassium 5.1 mmol/L (3.5-5.0); Total Bilirubin 0.4 mg/dL (0.2-1.0); Total Protein 3.7 g/dL (6.4-8.9); eGFR CKD-EPI 100.3 (>60)
[2024-03-03 10:18] LABS: ABS Eosinophils 0.1 10^3/uL (0.0-0.5); ABS Lymphocytes 0.2 10^3/uL (1.0-4.8); ABS Neutrophils 2.2 10^3/uL (1.5-7.6); ABS Nucleated RBC 0.01 10^3/ul; Anisocytosis 3+; Eosinophil % 2.1 %; Lymphocyte % 8.7 %; Nucleated Red Blood Cells % 0.3 %/100WBC (0.0-0.8); Tear Drop Cells 2+
[2024-03-03] MEDS: Furosemide 40 mg/4 ml IV VIAL IV ONE (10:35)
[2024-03-03] MEDS ORDERED: Magnesium Hydroxide LIQ 30 ML UDC PO PRN (15:49)
[2024-03-03 15:56] LABS: Hematocrit 23.9 % (35-45); Hemoglobin 8.3 g/dL (11.5-14.3); Mean Corpuscular Hemoglobin 34.4 pg (27-33); Mean Corpuscular Hgb Conc 34.7 g/dL (31-36); Mean Corpuscular Volume 99.4 fL (80-97); Mean Platelet Volume 8.6 fL (7.5-11.2); Platelet Count 232 10^3/uL (150-450); Red Cell Distribution Width 22.6 % (12-17); White Blood Count 3.7 10^3/uL (3.8-11.8)
[2024-03-03 16:32] LABS: Calcium 6.9 mg/dL (8.6-10.3); Creatinine, Serum 0.81 mg/dL (0.51-0.95); Potassium 5.3 mmol/L (3.5-5.0); eGFR CKD-EPI 83.6 (>60)
[2024-03-03] MEDS: Furosemide 40 mg/4 ml IV VIAL IV SLOW PU ONE (16:56)
[2024-03-03] MEDS: Magnesium Hydroxide LIQ 30 ML UDC PO SCH (21:52)
[2024-03-03] MEDS: Polyethylene Glycol 3350 17 GM PACKET PO SCH (21:53)
[2024-03-03] MEDS: Senna TAB 8.6 mg TAB PO SCH (21:53)
[2024-03-04 00:36] LABS: Creatinine, Serum 0.8 mg/dL (0.51-0.95); Potassium 5.1 mmol/L (3.5-5.0); eGFR CKD-EPI 84.8 (>60)
[2024-03-04 05:40] LABS: Resp Rate 14
[2024-03-04 05:42] LABS: PCO2 Arterial 49 mmHg (35-45); PO2 Arterial 70 mmHg (80-100)
[2024-03-04 05:47] LABS: Hematocrit 24.9 % (35-45); Hemoglobin 8.7 g/dL (11.5-14.3); Mean Corpuscular Hemoglobin 34.2 pg (27-33); Mean Corpuscular Hgb Conc 34.9 g/dL (31-36); Mean Corpuscular Volume 98.1 fL (80-97); Mean Platelet Volume 8.3 fL (7.5-11.2); Platelet Count 259 10^3/uL (150-450); Red Blood Count 2.54 10^6/uL (3.63-4.92); Red Cell Distribution Width 22.6 % (12-17); White Blood Count 4.8 10^3/uL (3.8-11.8)
[2024-03-04 06:16] LABS: Calcium 6.9 mg/dL (8.6-10.3); Creatinine, Serum 0.79 mg/dL (0.51-0.95); Magnesium 2.3 mg/dL (1.9-2.7); Phosphorus 2.1 mg/dL (2.5-5.0); Potassium 4.8 mmol/L (3.5-5.0); eGFR CKD-EPI 86.1 (>60)
[2024-03-04] MEDS: Sodium Phosphate IV 15 MMOL in NS 0.9% 250 ml 250 ML IV ONE (07:08)
[2024-03-04 07:17] LABS: ABS Eosinophils 0.1 10^3/uL (0.0-0.5); ABS Lymphocytes 0.4 10^3/uL (1.0-4.8); ABS Monocytes 0.1 10^3/uL (0.0-0.9); ABS Neutrophils 4.2 10^3/uL (1.5-7.6); ABS Nucleated RBC 0.06 10^3/ul; Anisocytosis 3+; Eosinophil % 1.6 %; Lymphocyte % 8.3 %; Nucleated Red Blood Cells % 1.3 %/100WBC (0.0-0.8); Tear Drop Cells 2+
[2024-03-04] MEDS: Midazolam PREMIXBAG 1 MG/ML NS 100 ML IV SCH (08:54)
[2024-03-04] MEDS: methylPREDNISolone SOD SUCC 40 mg/ml 1 ml VIAL IV SCH ×2 (09:03→21:03)
[2024-03-04] MEDS: Cisatracurium 100 MG in NS 0.9% 250 ml 200 ML IV SCH (10:03)
[2024-03-04] MEDS: methylPREDNISolone SOD SUCC 40 mg/ml 1 ml VIAL IV ONE (10:07)
[2024-03-04] MEDS: Rocuronium 50 mg VIAL 10 mg/ml 5 ml VIAL (50 mg) IV ONE (10:11)
[2024-03-04] MEDS: NS 0.9% 250 ml 250 ML IV ONE (10:24)
[2024-03-04 11:49] LABS: Resp Rate 18
[2024-03-04 11:53] LABS: PCO2 Arterial 51 mmHg (35-45); PO2 Arterial 94 mmHg (80-100)
[2024-03-04 15:01] LABS: Resp Rate 18
[2024-03-04 15:03] LABS: PCO2 Arterial 50 mmHg (35-45); PO2 Arterial 110 mmHg (80-100)
[2024-03-04 18:21] LABS: Resp Rate 14
[2024-03-04 18:23] LABS: PCO2 Arterial 52 mmHg (35-45); PO2 Arterial 131 mmHg (80-100)
[2024-03-04] MEDS: Artificial Tear OPHTH.OINT 3.5 GM BOTH EYES PRN (18:56)
[2024-03-05 00:32] LABS: PCO2 Arterial 59 mmHg (35-45); PO2 Arterial 123 mmHg (80-100)
[2024-03-05 06:17] LABS: PCO2 Arterial 51 mmHg (35-45); PO2 Arterial 154 mmHg (80-100)
[2024-03-05 06:26] LABS: Hematocrit 22.5 % (35-45); Hemoglobin 7.9 g/dL (11.5-14.3); Mean Corpuscular Hemoglobin 34.6 pg (27-33); Mean Corpuscular Hgb Conc 34.9 g/dL (31-36); Mean Corpuscular Volume 99.3 fL (80-97); Mean Platelet Volume 8.7 fL (7.5-11.2); Platelet Count 221 10^3/uL (150-450); Red Blood Count 2.27 10^6/uL (3.63-4.92); Red Cell Distribution Width 22.4 % (12-17); White Blood Count 4.8 10^3/uL (3.8-11.8)
[2024-03-05 06:45] LABS: ABS Lymphocytes 0.2 10^3/uL (1.0-4.8); ABS Monocytes 0.1 10^3/uL (0.0-0.9); ABS Neutrophils 4.5 10^3/uL (1.5-7.6); ABS Nucleated RBC 0.02 10^3/ul; Anisocytosis 2+; Eosinophil % 0.4 %; Lymphocyte % 3.5 %; Nucleated Red Blood Cells % 0.3 %/100WBC (0.0-0.8); Polychromasia 1+
[2024-03-05 07:20] LABS: Albumin 2.1 g/dL (3.2-5.2); Albumin/Globulin Ratio 1.2 (1-3); Calcium 6.4 mg/dL (8.6-10.3); Creatinine, Serum 0.54 mg/dL (0.51-0.95); Globulin 1.7 g/dL (2-4); Magnesium 2.5 mg/dL (1.9-2.7); Potassium 5.8 mmol/L (3.5-5.0); Total Bilirubin 0.5 mg/dL (0.2-1.0); Total Protein 3.8 g/dL (6.4-8.9)
[2024-03-05] MEDS: Sodium Phosphate IV 15 MMOL in NS 0.9% 250 ml 250 ML IV ONE (07:36)
[2024-03-05] MEDS: Dextrose 50% Syringe 50 ml 25 GM/50 ML SYRINGE IV PUSH ONE (08:14)
[2024-03-05] MEDS: CALCIUM GLUCONATE 1GM/50ML NS 1 GM/50 ML BAG IV ONE (08:15)
[2024-03-05] MEDS: Furosemide 40 mg/4 ml IV VIAL IV SLOW PU ONE (09:04)
[2024-03-05 09:20] LABS: Resp Rate 14
[2024-03-05 09:24] LABS: PCO2 Arterial 54 mmHg (35-45); PO2 Arterial 165 mmHg (80-100)
[2024-03-05 12:41] LABS: Calcium 6.8 mg/dL (8.6-10.3); Creatinine, Serum 0.61 mg/dL (0.51-0.95); eGFR CKD-EPI 102.9 (>60)
[2024-03-05 13:10] LABS: Potassium 5.2 mmol/L (3.5-5.0)
[2024-03-05] MEDS: CALCIUM GLUCONATE 1GM/50ML NS 1 GM/50 ML BAG IV SCH (14:08)
[2024-03-05 15:45] LABS: Resp Rate 16
[2024-03-05 15:47] LABS: PCO2 Arterial 44 mmHg (35-45); PO2 Arterial 168 mmHg (80-100)
[2024-03-05 23:51] LABS: Resp Rate 16
[2024-03-05 23:52] LABS: PCO2 Arterial 46 mmHg (35-45); PO2 Arterial 125 mmHg (80-100)
[2024-03-06 00:29] LABS: Anion Gap 5 mmol/L (2-16); Blood Urea Nitrogen 22 mg/dL (6-24); CO2 Carbon Dioxide 33 mmol/L (22-32); Calcium 7.2 mg/dL (8.6-10.3); Chloride 91 mmol/L (101-111); Creatinine, Serum 0.65 mg/dL (0.51-0.95); Glucose 107 mg/dL (70-100); Sodium 129 mmol/L (135-145); eGFR CKD-EPI 101.4 (>60)
[2024-03-06 06:16] LABS: PCO2 Arterial 45 mmHg (35-45); PO2 Arterial 110 mmHg (80-100)
[2024-03-06 06:35] LABS: Hematocrit 22.6 % (35-45); Hemoglobin 8.1 g/dL (11.5-14.3); Mean Corpuscular Hemoglobin 35.4 pg (27-33); Mean Corpuscular Hgb Conc 35.7 g/dL (31-36); Mean Corpuscular Volume 99.2 fL (80-97); Mean Platelet Volume 9.1 fL (7.5-11.2); Platelet Count 233 10^3/uL (150-450); Red Blood Count 2.28 10^6/uL (3.63-4.92); Red Cell Distribution Width 22.3 % (12-17); White Blood Count 6.3 10^3/uL (3.8-11.8)
[2024-03-06 06:53] LABS: Calcium 7.2 mg/dL (8.6-10.3); Creatinine, Serum 0.7 mg/dL (0.51-0.95); Magnesium 2.4 mg/dL (1.9-2.7); Phosphorus 2.4 mg/dL (2.5-5.0); Potassium 5.2 mmol/L (3.5-5.0); eGFR CKD-EPI 99.6 (>60)
[2024-03-06 06:54] LABS: ABS Lymphocytes 0.4 10^3/uL (1.0-4.8); ABS Monocytes 0.1 10^3/uL (0.0-0.9); ABS Neutrophils 5.8 10^3/uL (1.5-7.6); ABS Nucleated RBC 0.08 10^3/ul; Anisocytosis 2+; Eosinophil % 0.4 %; Lymphocyte % 6.6 %; Nucleated Red Blood Cells % 1.3 %/100WBC (0.0-0.8); Polychromasia 1+
[2024-03-06 10:19] LABS: Venous Bicarbonate HCO3 31.7 mmol/L (24-28)
[2024-03-06] MEDS: Acetylcysteine 600mgCAP(RENAL) PO SCH (12:39)
[2024-03-06] MEDS: CMC:Selenium 200 mcg TAB (NF) PO SCH (12:39)
[2024-03-06 15:21] LABS: Calcium 7.4 mg/dL (8.6-10.3); Creatinine, Serum 0.64 mg/dL (0.51-0.95); Potassium 4.9 mmol/L (3.5-5.0); eGFR CKD-EPI 101.7 (>60)
[2024-03-07 01:22] LABS: Resp Rate 16
[2024-03-07 01:23] LABS: PCO2 Arterial 56 mmHg (35-45); PO2 Arterial 145 mmHg (80-100)
[2024-03-07 05:24] LABS: Hematocrit 25.9 % (35-45); Mean Corpuscular Hemoglobin 34.6 pg (27-33); Mean Corpuscular Hgb Conc 34.7 g/dL (31-36); Mean Corpuscular Volume 99.8 fL (80-97); Mean Platelet Volume 8.8 fL (7.5-11.2); Platelet Count 216 10^3/uL (150-450); Red Cell Distribution Width 21.5 % (12-17); White Blood Count 8.1 10^3/uL (3.8-11.8)
[2024-03-07 05:42] LABS: Albumin 2.3 g/dL (3.2-5.2); Albumin/Globulin Ratio 1.2 (1-3); Creatinine, Serum 0.6 mg/dL (0.51-0.95); Globulin 1.9 g/dL (2-4); Magnesium 2.3 mg/dL (1.9-2.7); Phosphorus 2.6 mg/dL (2.5-5.0); Potassium 4.5 mmol/L (3.5-5.0); Total Bilirubin 0.8 mg/dL (0.2-1.0); Total Protein 4.2 g/dL (6.4-8.9); eGFR CKD-EPI 103.3 (>60)
[2024-03-07 06:29] LABS: ABS Eosinophils 0.2 10^3/uL (0.0-0.5); ABS Lymphocytes 0.8 10^3/uL (1.0-4.8); ABS Monocytes 0.2 10^3/uL (0.0-0.9); ABS Neutrophils 6.9 10^3/uL (1.5-7.6); ABS Nucleated RBC 0.02 10^3/ul; Anisocytosis 2+; Eosinophil % 1.9 %; Lymphocyte % 9.6 %; Nucleated Red Blood Cells % 0.2 %/100WBC (0.0-0.8); Polychromasia 1+
[2024-03-07 16:01] LABS: Venous Bicarbonate HCO3 30.6 mmol/L (24-28)
[2024-03-08 04:23] LABS: PCO2 Arterial 49 mmHg (35-45); PO2 Arterial 91 mmHg (80-100)
[2024-03-08 04:29] LABS: Hemoglobin 7.9 g/dL (11.5-14.3); Mean Corpuscular Hemoglobin 34.6 pg (27-33); Mean Corpuscular Hgb Conc 34.4 g/dL (31-36); Mean Corpuscular Volume 100.6 fL (80-97); Mean Platelet Volume 8.8 fL (7.5-11.2); Platelet Count 179 10^3/uL (150-450); Red Blood Count 2.29 10^6/uL (3.63-4.92); Red Cell Distribution Width 22.1 % (12-17); White Blood Count 7.6 10^3/uL (3.8-11.8)
[2024-03-08 04:56] LABS: Albumin 2.1 g/dL (3.2-5.2); Albumin/Globulin Ratio 1.3 (1-3); Calcium 7.3 mg/dL (8.6-10.3); Creatinine, Serum 0.58 mg/dL (0.51-0.95); Globulin 1.6 g/dL (2-4); Magnesium 2.3 mg/dL (1.9-2.7); Potassium 5.1 mmol/L (3.5-5.0); Total Bilirubin 0.7 mg/dL (0.2-1.0); Total Protein 3.7 g/dL (6.4-8.9); eGFR CKD-EPI 104.2 (>60)
[2024-03-08 05:49] LABS: ABS Lymphocytes 0.3 10^3/uL (1.0-4.8); ABS Monocytes 0.2 10^3/uL (0.0-0.9); ABS Nucleated RBC 0.09 10^3/ul; Anisocytosis 2+; Eosinophil % 0.5 %; Lymphocyte % 4.4 %; Nucleated Red Blood Cells % 1.2 %/100WBC (0.0-0.8); Polychromasia 1+
[2024-03-08] MEDS: Furosemide 40 mg/4 ml IV VIAL IV SLOW PU ONE (08:35)
[2024-03-08] MEDS: Ondansetron 4 mg VIAL 2 MG/ML 2 ml VIAL IV PRN (17:36)
[2024-03-09 04:56] LABS: Hematocrit 25.7 % (35-45); Hemoglobin 8.9 g/dL (11.5-14.3); Mean Corpuscular Hemoglobin 34.6 pg (27-33); Mean Corpuscular Hgb Conc 34.5 g/dL (31-36); Mean Corpuscular Volume 100.4 fL (80-97); Mean Platelet Volume 9.1 fL (7.5-11.2); Platelet Count 185 10^3/uL (150-450); Red Blood Count 2.56 10^6/uL (3.63-4.92); Red Cell Distribution Width 22.5 % (12-17); White Blood Count 9.6 10^3/uL (3.8-11.8)
[2024-03-09 05:12] LABS: Albumin 2.2 g/dL (3.2-5.2); Albumin/Globulin Ratio 1.2 (1-3); Calcium 7.1 mg/dL (8.6-10.3); Creatinine, Serum 0.46 mg/dL (0.51-0.95); Globulin 1.9 g/dL (2-4); Magnesium 2.1 mg/dL (1.9-2.7); Phosphorus 2.4 mg/dL (2.5-5.0); Potassium 3.9 mmol/L (3.5-5.0); Total Bilirubin 0.7 mg/dL (0.2-1.0); Total Protein 4.1 g/dL (6.4-8.9); eGFR CKD-EPI 110.2 (>60)
[2024-03-09 06:11] LABS: ABS Eosinophils 0.1 10^3/uL (0.0-0.5); ABS Lymphocytes 0.7 10^3/uL (1.0-4.8); ABS Monocytes 0.3 10^3/uL (0.0-0.9); ABS Neutrophils 8.5 10^3/uL (1.5-7.6); ABS Nucleated RBC 0.15 10^3/ul; Anisocytosis 1+; Eosinophil % 0.7 %; Lymphocyte % 7.4 %; Macrocytosis 1+; Nucleated Red Blood Cells % 1.5 %/100WBC (0.0-0.8)
[2024-03-10 04:23] LABS: PCO2 Arterial 35 mmHg (35-45); PO2 Arterial 74 mmHg (80-100)
[2024-03-10 04:39] LABS: Hematocrit 23.2 % (35-45); Hemoglobin 8.1 g/dL (11.5-14.3); Mean Corpuscular Hemoglobin 34.8 pg (27-33); Mean Corpuscular Hgb Conc 34.8 g/dL (31-36); Mean Corpuscular Volume 99.9 fL (80-97); Mean Platelet Volume 9.1 fL (7.5-11.2); Platelet Count 171 10^3/uL (150-450); Red Blood Count 2.33 10^6/uL (3.63-4.92); Red Cell Distribution Width 22.8 % (12-17); White Blood Count 7.5 10^3/uL (3.8-11.8)
[2024-03-10 05:13] LABS: Albumin 2.2 g/dL (3.2-5.2); Albumin/Globulin Ratio 1.3 (1-3); Calcium 7.1 mg/dL (8.6-10.3); Creatinine, Serum 0.46 mg/dL (0.51-0.95); Globulin 1.7 g/dL (2-4); Phosphorus 1.9 mg/dL (2.5-5.0); Potassium 3.8 mmol/L (3.5-5.0); Total Bilirubin 0.8 mg/dL (0.2-1.0); Total Protein 3.9 g/dL (6.4-8.9); eGFR CKD-EPI 110.2 (>60)
[2024-03-10 05:52] LABS: ABS Basophils 0.1 10^3/uL (0.0-0.1); ABS Lymphocytes 0.6 10^3/uL (1.0-4.8); ABS Monocytes 0.4 10^3/uL (0.0-0.9); ABS Neutrophils 6.4 10^3/uL (1.5-7.6); ABS Nucleated RBC 0.09 10^3/ul; Eosinophil % 0.4 %; Lymphocyte % 8.3 %; Nucleated Red Blood Cells % 1.2 %/100WBC (0.0-0.8)
[2024-03-10 05:53] LABS: Anisocytosis 2+; Macrocytosis 1+
[2024-03-10] MEDS: fentaNYL 100 mcg/2 ml 50 MCG/ML VIAL IV SLOW PU ONE (08:00)
[2024-03-10] MEDS: methylPREDNISolone SOD SUCC 40 mg/ml 1 ml VIAL IV SCH (11:23)
[2024-03-10 12:53] LABS: Osmolality Serum 267 mOsm/kg (275-295)
[2024-03-10 13:13] LABS: Urine Chloride Concentration < 22 mmol/L; Urine Potassium Concentration 21.5 mmol/L; Urine Sodium Concentration 78 mmol/L
[2024-03-10 13:25] LABS: Urine Osmo 714 mOsm/kg (150-1150)
[2024-03-10] MEDS: Dextrose 50% Syringe 50 ml 25 GM/50 ML SYRINGE IV PUSH PRN (13:43)
[2024-03-10 16:04] LABS: PCO2 Arterial 37 mmHg (35-45); PO2 Arterial 92 mmHg (80-100)
[2024-03-10 16:08] LABS: Venous Bicarbonate HCO3 27.8 mmol/L (24-28)
[2024-03-10] MEDS ORDERED: Polyethylene Glycol 3350 17 GM PACKET PO PRN (16:58)
[2024-03-10] MEDS ORDERED: Senna TAB 8.6 mg TAB PO PRN (16:58)
[2024-03-11 04:37] LABS: Hematocrit 27.6 % (35-45); Hemoglobin 9.7 g/dL (11.5-14.3); Mean Corpuscular Hemoglobin 35.3 pg (27-33); Mean Corpuscular Hgb Conc 35.1 g/dL (31-36); Mean Corpuscular Volume 100.5 fL (80-97); Platelet Count 207 10^3/uL (150-450); Red Blood Count 2.75 10^6/uL (3.63-4.92); Red Cell Distribution Width 22.9 % (12-17); White Blood Count 9.4 10^3/uL (3.8-11.8)
[2024-03-11 05:45] LABS: Magnesium 1.7 mg/dL (1.9-2.7); Phosphorus 1.9 mg/dL (2.5-5.0)
[2024-03-11 06:44] LABS: ABS Lymphocytes 0.8 10^3/uL (1.0-4.8); ABS Monocytes 0.6 10^3/uL (0.0-0.9); ABS Nucleated RBC 0.01 10^3/ul; Anisocytosis 2+; Eosinophil % 0.5 %; Macrocytosis 1+; Nucleated Red Blood Cells % 0.1 %/100WBC (0.0-0.8)
[2024-03-11] MEDS: Furosemide 40 mg/4 ml IV VIAL IV SLOW PU ONE (07:44)
[2024-03-11] MEDS: Acetaminophen IV 1 GM/100ML 1,000 MG/100 ML BAG IV PRN (07:49)
[2024-03-11] MEDS ORDERED: Sodium Phosphate IV 0 MMOL in NS 0.9% 250 ml 250 ML IV ONE (08:27)
[2024-03-11] MEDS: Propofol 10 mg/ml 100 ML BTL 1,000 MG/100 ML BTL IV SCH (08:50)
[2024-03-11] MEDS ORDERED: Zosyn per Pharmacy NOTE FOLLOW UP SCH (09:00)
[2024-03-11] MEDS: Piperacillin/Tazobac 3.375 BAG 3.375 GM/100 ML BAG IV ONE (09:01)
[2024-03-11 09:13] LABS: Urine Appearance Clear; Urine Bilirubin Negative (Negative); Urine Blood Negative (Negative); Urine Color Light-Yellow; Urine Glucose Negative (Negative); Urine Ketones Negative (Negative); Urine Nitrite Negative (Negative); Urine Protein Negative (Negative); Urine Urobilinogen Negative (Negative); Urine pH 6.5 (5.0-8.0)
[2024-03-11] MEDS: Norepinephrine 4 MG/250mL D5W 4,000 MCG/250 ML BAG IV SCH ×2 (09:20→15:31)
[2024-03-11 09:24] LABS: Albumin 2.5 g/dL (3.2-5.2); Albumin/Globulin Ratio 1.4 (1-3); Calcium 7.5 mg/dL (8.6-10.3); Creatinine, Serum 0.33 mg/dL (0.51-0.95); Globulin 1.8 g/dL (2-4); Potassium 3.7 mmol/L (3.5-5.0); Total Bilirubin 1.2 mg/dL (0.2-1.0); Total Protein 4.3 g/dL (6.4-8.9); eGFR CKD-EPI 119.3 (>60)
[2024-03-11] MEDS: fentaNYL 100 mcg/2 ml 50 MCG/ML VIAL IV SLOW PU PRN (09:32)
[2024-03-11 10:00] LABS: Osmolality Serum 252 mOsm/kg (275-295)
[2024-03-11] MEDS: Propofol 10 mg/ml 100 ML BTL 1,000 MG/100 ML BTL ONE (10:46)
[2024-03-11] MEDS: fentaNYL 100 mcg/2 ml 50 MCG/ML VIAL ONE (10:46)
[2024-03-11] MEDS: Magnesium Sulfate 2 gm BAG 2 GM/50 ML BAG IVPB ONE (10:53)
[2024-03-11] MEDS: Norepinephrine 4 MG/250mL D5W 4,000 MCG/250 ML BAG IV ONE (11:29)
[2024-03-11] MEDS: Sodium Phosphate IV 30 MMOL in NS 0.9% 250 ml 250 ML IV ONE (11:45)
[2024-03-11] MEDS: ZOSYN 3.375 GM Q8H per EXTENDED INFUSION IV SCH (14:15)
[2024-03-11 16:27] LABS: Sodium 125 mmol/L (135-145)
[2024-03-11 16:46] VITALS: BP 124/72
[2024-03-11 17:02] LABS: Ur Urea Nitrogen Concentration 98 mg/dL; Urine Chloride Concentration < 22 mmol/L; Urine Potassium Concentration < 3.0 mmol/L; Urine Sodium Concentration < 18 mmol/L
[2024-03-11 17:38] LABS: Urine Osmo < 100 mOsm/kg (150-1150)
[2024-03-11 18:23] LABS: Urine Creatinine Concentration 5.52 mg/dL (20.00-320.00)
[2024-03-11 19:17] LABS: Uric Acid < 1.7 mg/dL (2.3-6.6)
[2024-03-12 05:35] LABS: Hematocrit 27.3 % (35-45); Hemoglobin 9.4 g/dL (11.5-14.3); Mean Corpuscular Hemoglobin 35.1 pg (27-33); Mean Corpuscular Hgb Conc 34.6 g/dL (31-36); Mean Corpuscular Volume 101.6 fL (80-97); Mean Platelet Volume 8.9 fL (7.5-11.2); Platelet Count 209 10^3/uL (150-450); Red Blood Count 2.69 10^6/uL (3.63-4.92); Red Cell Distribution Width 23.6 % (12-17)
[2024-03-12 05:48] LABS: Albumin 2.2 g/dL (3.2-5.2); Albumin/Globulin Ratio 1.3 (1-3); Calcium 7.8 mg/dL (8.6-10.3); Creatinine, Serum 0.39 mg/dL (0.51-0.95); Globulin 1.7 g/dL (2-4); Magnesium 1.8 mg/dL (1.9-2.7); Phosphorus 3.5 mg/dL (2.5-5.0); Potassium 3.1 mmol/L (3.5-5.0); Total Bilirubin 1.3 mg/dL (0.2-1.0); Total Protein 3.9 g/dL (6.4-8.9); eGFR CKD-EPI 114.6 (>60)
[2024-03-12 07:15] LABS: ABS Basophils 0.1 10^3/uL (0.0-0.1); ABS Eosinophils 0.2 10^3/uL (0.0-0.5); ABS Lymphocytes 0.5 10^3/uL (1.0-4.8); ABS Monocytes 0.4 10^3/uL (0.0-0.9); ABS Neutrophils 9.3 10^3/uL (1.5-7.6); ABS Nucleated RBC 0.21 10^3/ul; Eosinophil % 1.8 %; Lymphocyte % 5.1 %; White Blood Count 10.4 10^3/uL (3.8-11.8)
[2024-03-12] MEDS: KCL 20 MEQ/100 ML IVPREMIX 20 MEQ/100 ML BAG IV ONE (08:17)
[2024-03-12] MEDS: Magnesium Sulfate 2 gm BAG 2 GM/50 ML BAG IVPB ONE (08:17)
[2024-03-12] MEDS ORDERED: Lorazepam PYXIS KEY PRN (09:36)
[2024-03-12] MEDS ORDERED: LORazepam 2 mg VIAL 1 ml IV PUSH SCH (10:00)
[2024-03-12] MEDS: LORazepam 2 mg VIAL 1 ml IV PUSH SCH (10:27)
[2024-03-12] MEDS: Morphine 10 MG/ML VIAL (1 ml) IV ONE (10:27)
[2024-03-12] MEDS: MORPHINE IV SCH (10:28)
[2024-03-12] MEDS: Morphine 10 MG/ML VIAL (1 ml) ONE (10:46)
== END 2024-03-12 10:55 | disposition expired | DRG 870 ==
LOC: ED 13:45 → EDHOLD 17:30 → ICU 20:36
PROVIDERS: ADMIT Internal Medicine Pulmonary Disease; ATTEND Internal Medicine Critical Care Medicine